=== PATIENT | female | born 1985 | race American Indian/Alaskan Native ===

== ENCOUNTER 2018-11-19 20:18 | Inpatient (IN) | payer MEDICAID ==
[2018-11-19] MEDS ORDERED: NACL 0.9% 1000 ML 1,000 ML IV ONE (20:39)
[2018-11-19 21:05] LABS: Basophils # (Auto) 0.1 K/mm3 (0.0-0.1); Basophils % (Auto) 0.6 % (0.0-1.8); Eosinophils # (Auto) 0.1 K/mm3 (0.0-0.4); Eosinophils % (Auto) 0.8 % (0.0-4.3); Hematocrit 39.6 % (30.3-42.9); Hemoglobin 12.8 gm/dl (10.1-14.3); Lymphocytes # (Auto) 2.2 K/mm3 (1.2-5.4); Lymphocytes % (Auto) 14.2 % (13.4-35.0); Mean Corpuscular HGB Conc 32 % (30-34); Mean Corpuscular Volume 81 fl (79-97); Monocytes # (Auto) 0.6 K/mm3 (0.0-0.8); Monocytes % (Auto) 4.3 % (0.0-7.3); Platelet Count 240 K/mm3 (140-440); Red Blood Count 4.87 M/mm3 (3.65-5.03); Red Cell Distribution Width 14.4 % (13.2-15.2)
[2018-11-19] MEDS ORDERED: VANCOMYCIN/NS 1 GM/250 ML 1 GM/250 ML BAG IV ONE (21:21)
[2018-11-19] MEDS ORDERED: ZOSYN/NS 4.5GM/100ML 4.5 GM/100 ML VIAL IV ONE (21:22)
[2018-11-19] MEDS ORDERED: ZOFRAN IV ONE (21:23)
[2018-11-19] MEDS ORDERED: SUBLIMAZE IV ONE (21:23)
--- NOTE | 2018-11-19 21:26 | Emergency Department Report ---
HPI - General Chief Complaint: Abdominal Pain Time Seen by Provider: 11/19/18 21:07 - HPI HPI: Room 22 The patient is a 33-year-old female presenting with a chief complaint of abdominal erythema. States last night she began having body aches and chills. This morning at approximately 11:00 she states her dog jumped on her and put his pulse on her abdomen. Within the hour the patient began noticing erythema to her abdomen. The patient states erythema has increased dramatically over the last 2 hours. Patient is to subjective fever and nausea but denies vomiting. Patient admits to 3 episodes of diarrhea. The patient states her dog has been vaccinated. Location: Abdomen Duration: [See above] Quality: Pain Severity:03/30 Modifying factors: [see above] Context: [see above] Mode of transportation: [not driving] ED Past Medical Hx - Past Medical History Previous Medical History?: Yes Hx Hypertension: Yes Additional medical history: miscarriage x1 - Surgical History Past Surgical History?: Yes Hx Cholecystectomy: Yes Additional Surgical History: C -Section 2011. Breast Reduction 2008. BTL - Family History Family history: no significant - Social History Smoking Status: Never Smoker Substance Use Type: None (denies illicit drug use) - Medications Home Medications: Home Medications Medication Instructions Recorded Confirmed Last Taken Type Labetalol [Normodyne] 200 mg PO BID 06/29/13 06/29/13 06/28/13 History Sulfamethoxazole/Trimethoprim 1 each PO BID #30 tablet 06/29/13 Unknown Rx [Bactrim DS] oxyCODONE /ACETAMINOPHEN [Percocet 1 tab PO Q6HR PRN #20 tablet 06/29/13 Unknown Rx 5/325 mg] Amoxicillin [Amoxicillin TAB] 875 mg PO BID #14 tablet 10/07/14 Unknown Rx Naproxen [Naprosyn TAB] 500 mg PO BID #20 tablet 10/07/14 Unknown Rx amLODIPine [Norvasc] 5 mg PO DAILY #30 tab 10/07/14 Unknown Rx hydrOXYzine PAMOATE [Vistaril] 50 mg PO Q6HR PRN #30 capsule 07/25/15 Unknown Rx methylPREDNISolone [Medrol Dose 1 pack PO QAM #1 pack 07/25/15 Unknown Rx Pb] ED Review of Systems ROS: Stated complaint: FLU LIKE SX Other details as noted in HPI Constitutional: fever Eyes: denies: eye pain ENT: denies: throat pain Respiratory: no symptoms reported Cardiovascular: denies: chest pain Endocrine: no symptoms reported Gastrointestinal: abdominal pain, nausea. denies: vomiting, diarrhea Genitourinary: denies: dysuria Musculoskeletal: denies: back pain Neurological: headache Physical Exam - Physical Exam Vital Signs: Vital Signs 11/19/18 20:26 Temperature 98.8 F Pulse Rate 106 H Respiratory 18 Rate Blood Pressure 173/117 O2 Sat by Pulse 98 Oximetry Physical Exam: GENERAL: The patient is well-developed well-nourished female lying on stretcher not appearing to be in acute distress. [] HEENT: Normocephalic. Atraumatic. Extraocular motions are intact. Patient has moist mucous membranes. NECK: Supple. Trachea midline CHEST/LUNGS: Clear to auscultation. There is no respiratory distress noted. HEART/CARDIOVASCULAR: Regular. There is no tachycardia. There is no gallop rub or murmur. ABDOMEN: Abdomen is soft, with large region of erythema/cellulitis encompassing the midepigastric region and half of the right upper quadrant and half of the left upper quadrant. Patient has normal bowel sounds. There is no abdominal distention. SKIN: There is a large area of cellulitis encompassing the midepigastric and bilateral upper quadrants of the abdomen. There is no diaphoresis. NEURO: The patient is awake, alert, and oriented. The patient is cooperative. The patient has normal speech MUSCULOSKELETAL: There is no evidence of acute injury. ED Course Vital Signs 11/19/18 20:26 Temperature 98.8 F Pulse Rate 106 H Respiratory 18 Rate Blood Pressure 173/117 O2 Sat by Pulse 98 Oximetry ED Medical Decision Making - Lab Data Result diagrams: 11/19/18 20:52 11/19/18 20:52 Laboratory Tests 11/19/18 11/19/18 11/19/18 20:52 20:52 21:14 WBC 15.2 H RBC 4.87 Hgb 12.8 Hct 39.6 MCV 81 MCH 26 L MCHC 32 RDW 14.4 Plt Count 240 Lymph % (Auto) 14.2 [place] % (Auto) 4.3 Eos % (Auto) 0.8 Baso % (Auto) 0.6 Lymph # 2.2 [place] # 0.6 Eos # 0.1 Baso # 0.1 Seg Neutrophils % 80.1 H Seg Neutrophils # 12.2 H Sodium 140 Potassium 3.0 L Chloride 96.5 L Carbon Dioxide 31 H Anion Gap 16 BUN 13 Creatinine 1.0 Estimated GFR > 60 BUN/Creatinine Ratio 13 Glucose 95 Calcium 8.8 Total Bilirubin 0.20 AST 14 ALT 14 Alkaline Phosphatase 80 Total Protein 6.9 Albumin 4.0 Albumin/Globulin Ratio 1.4 Urine Color Yellow Urine Turbidity Clear Urine pH 5.0 Ur Specific [place] 1.012 Urine Protein <15 mg/dl Urine Glucose (UA) Neg Urine Ketones Neg Urine Blood Lg Urine Nitrite Neg Urine Bilirubin Neg Urine Urobilinogen < 2.0 Ur Leukocyte Esterase Sm Urine WBC (Auto) 12.0 H Urine RBC (Auto) 2.0 U Epithel Cells (Auto) 3.0 Urine Bacteria (Auto) 1+ Urine HCG, Qual 11/19/18 21:14 WBC RBC Hgb Hct MCV MCH MCHC RDW Plt Count Lymph % (Auto) [place] % (Auto) Eos % (Auto) Baso % (Auto) Lymph # [place] # Eos # Baso # Seg Neutrophils % Seg Neutrophils # Sodium Potassium Chloride Carbon Dioxide Anion Gap BUN Creatinine Estimated GFR BUN/Creatinine Ratio Glucose Calcium Total Bilirubin AST ALT Alkaline Phosphatase Total Protein Albumin Albumin/Globulin Ratio Urine Color Urine Turbidity Urine pH Ur Specific [place] Urine Protein Urine Glucose (UA) Urine Ketones Urine Blood Urine Nitrite Urine Bilirubin Urine Urobilinogen Ur Leukocyte Esterase Urine WBC (Auto) Urine RBC (Auto) U Epithel Cells (Auto) Urine Bacteria (Auto) Urine HCG, Qual Negative - Differential Diagnosis cellulitis Critical care attestation.: If time is entered above; I have spent that time in minutes in the direct care of this critically ill patient, excluding procedure time. ED Disposition Clinical Impression: Abdominal wall cellulitis, Hypokalemia, Leukocytosis Disposition: OP ADMIT IP TO THIS HOSP Is pt being admited?: Yes Does the pt Need Aspirin: Yes Condition: Fair Instructions: Abdominal Pain (ED) Time of Disposition: 22:07 (hospitalist paged (Dr. Maren Perez))
[2018-11-19 21:45] LABS: Bacteria,Urine 1+ /HPF (Negative); Bilirubin,Urine NEG (Negative); Blood,Urine LG (Negative); Color,Urine Yellow (Yellow); Protein,Urine <15 mg/dL mg/dL (Negative); Urobilinogen,Urine < 2.0 mg/dL (<2.0)
[2018-11-19 21:53] LABS: Alanine Aminotransferase 14 units/L (7-56); BUN/Creatinine Ratio 13; Blood Urea Nitrogen 13 mg/dL (7-17); Calcium 8.8 mg/dL (8.4-10.2); Hemolysis Index 5
[2018-11-19 21:59] LABS: HCG Qualitative,Urine Negative (Negative)
[2018-11-19] MEDS ORDERED: K-DUR PO ONE (22:07)
[2018-11-19] MEDS ORDERED: VANCOMYCIN 2,000 MG in NACL 0.9% 500 ML 500 ML IV ONE (22:35)
[2018-11-19] MEDS ORDERED: TYLENOL PO PRN (23:29)
[2018-11-19] MEDS ORDERED: ZOFRAN IV PRN (23:29)
[2018-11-19] MEDS ORDERED: SODIUM CHLORIDE FLUSH SYRINGE 10 ML IV PRN (23:29)
--- NOTE | 2018-11-19 23:32 | History and Physical Report ---
History of Present Illness Date of examination: 11/19/18 History of present illness: 32-year-old woman with a history of hypertension, obesity class emergency room with complaints of abdominal redness that started today. She states that her dog jumped on her abdomen, later on she noticed the redness, small scratch on h er abdomen. Also complaining of chills Review of systems Constitutional: no weight loss, fever Ears, eyes, nose, mouth and throat: no nasal congestion, no nasal discharge, no sinus pressure, no vision change, no red eye. Neck: No neck pain or rigidity. Cardiovascular: no palpitations, chest pain Respiratory: no cough, shortness of breath Gastrointestinal: no hematochezia, abdominal pain Genitourinary : no frequency , no hematuria Musculoskeletal: no joint swelling or muscle ache Integumentary: no rash, no pruritis Neurological: no parathesias, no focal weakness Endocrine: no cold or heat intolerance, no polyuria or polydipsia Hematologic/Lymphatic: no easy bruising, no easy bleeding, no gland swelling Allergic/Immunologic: no urticaria, no angioedema. PAST MEDICAL HISTORY: Hypertension, obesity PAST SURGICAL HISTORY: Breast reduction, tubal ligation, cholecystectomy, C- section SOCIAL HISTORY: Denies alcohol, drugs, tobacco FAMILY HISTORY: Hypertension Medications and Allergies Allergies Allergy/AdvReac Type Severity Reaction Status Date / Time meperidine HCl [From Demerol] Allergy Hives Verified 06/29/13 10:07 Home Medications Medication Instructions Recorded Confirmed Last Taken Type Labetalol [Normodyne] 200 mg PO BID 06/29/13 06/29/13 06/28/13 History Sulfamethoxazole/Trimethoprim 1 each PO BID #30 tablet 06/29/13 Unknown Rx [Bactrim DS] oxyCODONE /ACETAMINOPHEN [Percocet 1 tab PO Q6HR PRN #20 tablet 06/29/13 Unknown Rx 5/325 mg] Amoxicillin [Amoxicillin TAB] 875 mg PO BID #14 tablet 10/07/14 Unknown Rx Naproxen [Naprosyn TAB] 500 mg PO BID #20 tablet 10/07/14 Unknown Rx amLODIPine [Norvasc] 5 mg PO DAILY #30 tab 10/07/14 Unknown Rx hydrOXYzine PAMOATE [Vistaril] 50 mg PO Q6HR PRN #30 capsule 07/25/15 Unknown Rx methylPREDNISolone [Medrol Dose 1 pack PO QAM #1 pack 07/25/15 Unknown Rx Pb] Active Meds: Active Medications Acetaminophen (Tylenol) 650 mg PO Q4H PRN PRN Reason: Pain MILD(1-3)/Fever >100.5/LINDA Enoxaparin Sodium (Lovenox) 30 mg SUB-Q QDAY BOYD Sodium Chloride (Nacl 0.9% 1000 Ml) 1,000 mls @ 250 mls/hr IV ONCE ONE Stop: 11/20/18 00:38 Last Admin: 11/19/18 21:44 Dose: 250 mls/hr Documented by: Vancomycin HCl 2,000 mg/ (Sodium Chloride) 540 mls @ 250 mls/hr IV ONCE ONE Stop: 11/20/18 00:44 Last Admin: 11/19/18 23:00 Dose: 250 mls/hr Documented by: Ondansetron HCl (Zofran) 4 mg IV Q8H PRN PRN Reason: Nausea And Vomiting Oxycodone/Acetaminophen (Percocet 5/325) 1 tab PO Q6H PRN PRN Reason: Pain, Moderate (4-6) Sodium Chloride (Sodium Chloride Flush Syringe 10 Ml) 10 ml IV BID BOYD Sodium Chloride (Sodium Chloride Flush Syringe 10 Ml) 10 ml IV PRN PRN PRN Reason: LINE FLUSH Exam - Physical Exam Narrative exam: General Apperance: The patient lying in bed, breathing comfortable HEENT: Normocephalic, atraumatic. Pupils equally round and reactive to light, EOMI, no sclericterus or JVD or thyromegaly or nodule. , no carotid bruit, mucous membranes moist, no exudate or erythema Heart: S1-S2, regular is rhythm Lungs: Clear to auscultation bilaterally, breathing comfortable Abdomen: Marked erythema across the abdominal wall, tender to touch, Positive bowel sounds, soft, nontender, nondistended, no organomegaly Extremities: No edema cyanosis clubbing Skin: no rash, nodule, warm and dry Neuro: cranial nerves 2-12 intact, speech is fluent, motor/sensory intact - Constitutional Vitals: Temp Pulse Resp BP Pulse Ox 98.8 F 97 H 16 177/97 97 11/19/18 20:26 11/19/18 21:26 11/19/18 21:26 11/19/18 21:26 11/19/18 21:26 Results - Labs CBC & Chem 7: 11/19/18 20:52 11/19/18 20:52 Labs: Abnormal lab results 11/19/18 11/19/18 11/19/18 Range/Units 20:52 20:52 21:14 WBC 15.2 H (4.5-11.0) K/mm3 MCH 26 L (28-32) pg Seg Neutrophils % 80.1 H (40.0-70.0) % Seg Neutrophils # 12.2 H (1.8-7.7) K/mm3 Potassium 3.0 L (3.6-5.0) mmol/L Chloride 96.5 L (98-107) mmol/L Carbon Dioxide 31 H (22-30) mmol/L Urine WBC (Auto) 12.0 H (0.0-6.0) /HPF Assessment and Plan Assessment Abdominal wall cellulitis Hypertension uncontrolled Obesity Plan Start vancomycin, follow cultures, check lactic acid Start IV hydralazine as needed for blood pressure control Start Percocet, DVT prophylaxis IV hydralazine as needed for blood pressure control Continue outpatient medications
[2018-11-19] MEDS ORDERED: APRESOLINE IV PRN (23:40)
[2018-11-20] MEDS ORDERED: BENADRYL ONE (01:28)
[2018-11-20] MEDS: BENADRYL IV PRN ×3 (01:33→22:06)
[2018-11-20] MEDS: PERCOCET 5/325 PO PRN ×3 (02:54→22:06)
[2018-11-20] MEDS ORDERED: VANCOMYCIN 1,500 MG in NACL 0.9% 500 ML 500 ML IV SCH ×2 (06:00→18:00)
[2018-11-20 06:16] LABS: Basophils % (Auto) 0.2 % (0.0-1.8); Eosinophils # (Auto) 0.1 K/mm3 (0.0-0.4); Eosinophils % (Auto) 1.1 % (0.0-4.3); Hematocrit 37.7 % (30.3-42.9); Hemoglobin 12.3 gm/dl (10.1-14.3); Lymphocytes # (Auto) 1.6 K/mm3 (1.2-5.4); Lymphocytes % (Auto) 14.1 % (13.4-35.0); Mean Corpuscular HGB Conc 33 % (30-34); Mean Corpuscular Volume 81 fl (79-97); Monocytes # (Auto) 0.5 K/mm3 (0.0-0.8); Monocytes % (Auto) 4.9 % (0.0-7.3); Platelet Count 206 K/mm3 (140-440); Red Blood Count 4.69 M/mm3 (3.65-5.03); Red Cell Distribution Width 14.3 % (13.2-15.2)
[2018-11-20 06:41] LABS: BUN/Creatinine Ratio 12; Blood Urea Nitrogen 11 mg/dL (7-17); Calcium 8.2 mg/dL (8.4-10.2); Hemolysis Index 17
--- NOTE | 2018-11-20 10:52 | Consultation ---
History of Present Illness - Reason for Consult Consult date: 11/20/18 Abdominal wall cellulitis Requesting physician: JUSTIN BARAHONA - History of Present Illness This patient is a 33 year old female with a past medical history of hypertension and morbid obesity, that presents in the ED on 11/19/18 with complaints of abdominal redness that started today. She stated that her dog jumped on her abdomen and she noticed a small scratch and redness on her abdomen. Upon further evaluation, she was complaining of chills.and 3 episodes of diarrhea. On admission WBC 15.2,Creatinine 0.9, Lactic acid 1.0, AST 14, ALT 14. Temperature 98.8, now, 100.0, HR 106, BP 173/117, U/A showed Mild Pyuria, Blood cultures were drawn and are pending. Patient states that she has a terrier at home. The dog jumped up on her and scratched her abdomen, a couple of hours later she felt a burning sensation and noticed swelling in the abdominal region. She denies alcohol, tobacco or substance abuse. Review of Systems: General: + fevers, no chills no rigors HEENT: no new visual disturbance Respiratory: No cough, sputum, hemoptysis or shortness of breath Cardiovascular: No chest pain, syncope Gastrointestinal: No nausea, vomiting. diarrhea or constipation Genitourinary: No dysuria or hematuria Musculoskeletal: No new or worsening neck pain or back pain Neurologic: No headaches, seizures Hematologic: No easy bruising or bleeding Endocrine: No night sweats. acute weight loss Skin: Abdomen +erythema and warmth, no drainage Psychiatric: stable mood; no excessive anxiety, sadness or moodiness Medications and Allergies Allergies Allergy/AdvReac Type Severity Reaction Status Date / Time meperidine HCl [From Demerol] Allergy Hives Verified 06/29/13 10:07 Home Medications Medication Instructions Recorded Confirmed Last Taken Type Labetalol [Normodyne] 200 mg PO BID 06/29/13 11/20/18 06/28/13 History amLODIPine [Norvasc] 5 mg PO DAILY #30 tab 10/07/14 11/20/18 Unknown Rx Active Meds: Active Medications Acetaminophen (Tylenol) 650 mg PO Q4H PRN PRN Reason: Pain MILD(1-3)/Fever >100.5/LINDA Amlodipine Besylate (Norvasc) 5 mg PO DAILY BOYD Diphenhydramine HCl (Benadryl) 25 mg IV Q6H PRN PRN Reason: Agitation Last Admin: 11/20/18 06:54 Dose: 25 mg Documented by: Enoxaparin Sodium (Lovenox) 40 mg SUB-Q QDAY BOYD Hydralazine HCl (Apresoline) 5 mg IV Q6H PRN PRN Reason: Hypertension Vancomycin HCl 1,500 mg/ (Sodium Chloride) 530 mls @ 333.333 mls/hr IV Q12H BOYD Labetalol HCl (Normodyne) 200 mg PO BID BOYD Ondansetron HCl (Zofran) 4 mg IV Q8H PRN PRN Reason: Nausea And Vomiting Oxycodone/Acetaminophen (Percocet 5/325) 1 tab PO Q6H PRN PRN Reason: Pain, Moderate (4-6) Last Admin: 11/20/18 02:54 Dose: 1 tab Documented by: Sodium Chloride (Sodium Chloride Flush Syringe 10 Ml) 10 ml IV BID BOYD Sodium Chloride (Sodium Chloride Flush Syringe 10 Ml) 10 ml IV PRN PRN PRN Reason: LINE FLUSH Physical Examination - Physical Exam Narrative exam: Constitutional: Alert, cooperative. mild distress observed, Morbidly obese Head, Ears, Nose: Normocephalic, atraumatic. External ears, nose normal Eyes: Conjunctivae/corneas clear. No icterus. No ptosis. Neck: Supple, no meningeal signs Oral: dentition good, no thrush Cardiovascular: S1, S2 normal. Respiratory: Good air entry, clear to auscultation bilaterally GI: Soft, non-tender; bowel sounds normal. No peritoneal signs Musculoskeletal: No pedal edema, no cyanosis. Skin: abdominal + erythema , + warmth, no drainage, Right underarm healed abscess Hem/Lymphatic: No palpable cervical or supraclavicular nodes. No lymphangitis Psych: Mood ok. Affect normal Neurological: Awake, alert, oriented. - Constitutional Vitals: Vital Signs Temp Pulse Resp BP Pulse Ox 100.0 F H 93 H 20 150/68 93 11/20/18 04:55 11/20/18 04:55 11/20/18 04:55 11/20/18 04:55 11/20/18 04:55 Temperature -Last 24 Hours Temperature 100.0 F Temperature 99.1 F Temperature 98.8 F Results - Labs CBC & Chem 7: 11/20/18 05:05 11/20/18 05:05 Labs: Abnormal lab results 11/19/18 11/19/18 11/19/18 Range/Units 20:52 20:52 21:14 WBC 15.2 H (4.5-11.0) K/mm3 MCH 26 L (28-32) pg Seg Neutrophils % 80.1 H (40.0-70.0) % Seg Neutrophils # 12.2 H (1.8-7.7) K/mm3 Potassium 3.0 L (3.6-5.0) mmol/L Chloride 96.5 L (98-107) mmol/L Carbon Dioxide 31 H (22-30) mmol/L Calcium (8.4-10.2) mg/dL Urine WBC (Auto) 12.0 H (0.0-6.0) /HPF 11/20/18 11/20/18 Range/Units 05:05 05:05 WBC (4.5-11.0) K/mm3 MCH 26 L (28-32) pg Seg Neutrophils % 79.7 H (40.0-70.0) % Seg Neutrophils # 8.8 H (1.8-7.7) K/mm3 Potassium 3.1 L (3.6-5.0) mmol/L Chloride (98-107) mmol/L Carbon Dioxide (22-30) mmol/L Calcium 8.2 L (8.4-10.2) mg/dL Urine WBC (Auto) (0.0-6.0) /HPF Assessment and Plan Cultures: 11/19/2018 Blood: in progress A/P: 33 -year-old female with a history of hypertension and morbid obesity, now admitted with: 1. SIRS vs Sepsis on admission: evidenced by leukocytosis and tachycardia. Now Fevers. Etiology most likely abdominal wall cellulitis. Blood cultures drawn and are pending, U/A shows mild pyuria. Currently being treated with Vancomycin. 2. Abdominal Wall Cellulitis: on exam abdomen +erythema, +warmth, no drainage. 3. Morbid Obesity: Discussion about low fat diet and incorporating an exercise regimen 4. Urinary Tract Infection: U/A consistent with mild UTI. 5. Vancomycin Allergy? - reported facial rash with warmth and redness. vancomycin discontinued. Started Cefazolin and Clindamycin. Plan -f/u blood cultures -order urine culture -order CRP -Start Cefazolin 1gm, IV q 8h and Clindamycin 600mg, IV Q 8h [facility] M: [phone] O:[phone]
[2018-11-20] MEDS: LOVENOX SUB-Q SCH (11:18)
[2018-11-20] MEDS: NORVASC PO SCH (11:19)
[2018-11-20] MEDS: NORMODYNE PO SCH ×2 (11:19→22:18)
[2018-11-20] MEDS: SODIUM CHLORIDE FLUSH SYRINGE 10 ML IV SCH ×2 (11:21→22:19)
[2018-11-20] MEDS ORDERED: VANCOMYCIN/NS 1 GM/250 ML 1 GM/250 ML BAG IV SCH (11:30)
[2018-11-20] MEDS: ANCEF/NS 1 GM/50 ML 1 GM/50 ML BAG IV SCH ×2 (14:31→22:19)
--- NOTE | 2018-11-20 14:41 | Progress Note ---
Assessment and Plan Assessment and plan: Sepsis secondary to cellulitis of the abdominal wall - Patient had leukocytosis and tachycardia at presentation - Patient was started with vancomycin but patient started to have itching all over her body and discontinued - ID was consulted and currently on cefazolin and clindamycin. Morbid obesity - Counseled about weight loss Hypertension - Continue medications DVT prophylaxis - On Lovenox Disposition; per clinical course. History Interval history: Patient was seen and evaluated this morning, patient admitted for subjective fever. Hospitalist Physical - Physical exam Narrative exam: Not in cardiopulmonary distress. The patient is morbidly obese. Vital signs as documented. Head exam is unremarkable. No scleral icterus . Neck is without jugular venous distension, thyromegaly, or carotid bruits. Lungs are clear to auscultation. Cardiac exam reveals regular rate and Rhythm. Abdominal exam reveals normal bowel sounds. Erythematous lesion on the abdomen. Extremities are nonedematous. DOUPER: Alert and oriented 3. - Constitutional Vitals: Temp Pulse Resp BP Pulse Ox 99.1 F 95 H 20 136/84 95 11/20/18 11:17 11/20/18 11:19 11/20/18 11:17 11/20/18 11:19 11/20/18 11:17 Results - Labs CBC & Chem 7: 11/20/18 05:05 11/20/18 05:05 Labs: Laboratory Last Values WBC 11.0 K/mm3 (4.5-11.0) 11/20/18 05:05 RBC 4.69 M/mm3 (3.65-5.03) 11/20/18 05:05 Hgb 12.3 gm/dl (10.1-14.3) 11/20/18 05:05 Hct 37.7 % (30.3-42.9) 11/20/18 05:05 MCV 81 fl (79-97) 11/20/18 05:05 MCH 26 pg (28-32) L 11/20/18 05:05 MCHC 33 % (30-34) 11/20/18 05:05 RDW 14.3 % (13.2-15.2) 11/20/18 05:05 Plt Count 206 K/mm3 (140-440) 11/20/18 05:05 Lymph % (Auto) 14.1 % (13.4-35.0) 11/20/18 05:05 [place] % (Auto) 4.9 % (0.0-7.3) 11/20/18 05:05 Eos % (Auto) 1.1 % (0.0-4.3) 11/20/18 05:05 Baso % (Auto) 0.2 % (0.0-1.8) 11/20/18 05:05 Lymph # 1.6 K/mm3 (1.2-5.4) 11/20/18 05:05 [place] # 0.5 K/mm3 (0.0-0.8) 11/20/18 05:05 Eos # 0.1 K/mm3 (0.0-0.4) 11/20/18 05:05 Baso # 0.0 K/mm3 (0.0-0.1) 11/20/18 05:05 Seg Neutrophils % 79.7 % (40.0-70.0) H 11/20/18 05:05 Seg Neutrophils # 8.8 K/mm3 (1.8-7.7) H 11/20/18 05:05 Sodium 142 mmol/L (137-145) 11/20/18 05:05 Potassium 3.1 mmol/L (3.6-5.0) L 11/20/18 05:05 Chloride 103.5 mmol/L (98-107) 11/20/18 05:05 Carbon Dioxide 27 mmol/L (22-30) 11/20/18 05:05 Anion Gap 15 mmol/L 11/20/18 05:05 BUN 11 mg/dL (7-17) 11/20/18 05:05 Creatinine 0.9 mg/dL (0.7-1.2) 11/20/18 05:05 Estimated GFR > 60 ml/min 11/20/18 05:05 BUN/Creatinine Ratio 12 % 11/20/18 05:05 Glucose 96 mg/dL (65-100) 11/20/18 05:05 Lactic Acid 1.00 mmol/L (0.7-2.0) 11/19/18 23:54 Calcium 8.2 mg/dL (8.4-10.2) L 11/20/18 05:05 Total Bilirubin 0.20 mg/dL (0.1-1.2) 11/19/18 20:52 AST 14 units/L (5-40) 11/19/18 20:52 ALT 14 units/L (7-56) 11/19/18 20:52 Alkaline Phosphatase 80 units/L (35-129) 11/19/18 20:52 Total Protein 6.9 g/dL (6.3-8.2) 11/19/18 20:52 Albumin 4.0 g/dL (3.9-5) 11/19/18 20:52 Albumin/Globulin Ratio 1.4 % 11/19/18 20:52 Urine Color Yellow (Yellow) 11/19/18 21:14 Urine Turbidity Clear (Clear) 11/19/18 21:14 Urine pH 5.0 (5.0-7.0) 11/19/18 21:14 Ur Specific [place] 1.012 (1.003-1.030) 11/19/18 21:14 Urine Protein <15 mg/dl mg/dL (Negative) 11/19/18 21:14 Urine Glucose (UA) Neg mg/dL (Negative) 11/19/18 21:14 Urine Ketones Neg mg/dL (Negative) 11/19/18 21:14 Urine Blood Lg (Negative) 11/19/18 21:14 Urine Nitrite Neg (Negative) 11/19/18 21:14 Urine Bilirubin Neg (Negative) 11/19/18 21:14 Urine Urobilinogen < 2.0 mg/dL (<2.0) 11/19/18 21:14 Ur Leukocyte Esterase Sm (Negative) 11/19/18 21:14 Urine WBC (Auto) 12.0 /HPF (0.0-6.0) H 11/19/18 21:14 Urine RBC (Auto) 2.0 /HPF (0.0-6.0) 11/19/18 21:14 U Epithel Cells (Auto) 3.0 /HPF (0-13.0) 11/19/18 21:14 Urine Bacteria (Auto) 1+ /HPF (Negative) 11/19/18 21:14 Urine HCG, Qual Negative (Negative) 11/19/18 21:14
[2018-11-20] MEDS: CLEOCIN 600 MG/50 mL 600 MG/50 ML BAG IV SCH ×2 (16:59→21:58)
[2018-11-21] MEDS ORDERED: ZYVOX PO SCH (04:00)
[2018-11-21] MEDS: NORMODYNE PO SCH ×2 (04:00→09:46)
[2018-11-21 04:59] LABS: Basophils % (Auto) 0.2 % (0.0-1.8); Eosinophils # (Auto) 0.6 K/mm3 (0.0-0.4); Eosinophils % (Auto) 4.8 % (0.0-4.3); Hematocrit 35.2 % (30.3-42.9); Hemoglobin 11.6 gm/dl (10.1-14.3); Lymphocytes # (Auto) 2.8 K/mm3 (1.2-5.4); Lymphocytes % (Auto) 23.7 % (13.4-35.0); Mean Corpuscular HGB Conc 33 % (30-34); Mean Corpuscular Volume 80 fl (79-97); Monocytes # (Auto) 0.8 K/mm3 (0.0-0.8); Monocytes % (Auto) 6.7 % (0.0-7.3); Platelet Count 198 K/mm3 (140-440); Red Blood Count 4.39 M/mm3 (3.65-5.03); Red Cell Distribution Width 14.5 % (13.2-15.2)
[2018-11-21 05:15] LABS: BUN/Creatinine Ratio 14; Blood Urea Nitrogen 11 mg/dL (7-17); Calcium 7.8 mg/dL (8.4-10.2); Hemolysis Index 12
[2018-11-21] MEDS ORDERED: UNASYN/NS 3 GM/100 ML 3 GM/100 ML BAG IV SCH (06:00)
--- NOTE | 2018-11-21 08:16 | Progress Note ---
Assessment and Plan Cultures: 11/19/2018 Blood: in progress A/P: 33 -year-old female with a history of hypertension and morbid obesity, now admitted with: 1. SIRS vs Sepsis on admission: evidenced by leukocytosis and tachycardia. Now Fevers. Etiology most likely abdominal wall cellulitis. Blood cultures drawn and are pending, U/A shows mild pyuria. 2. Abdominal Wall Cellulitis: on exam abdomen +erythema, +warmth, no drainage. Will start Augmentin IV to cover dog's mike and Zyvox PO for MRSA. -CRP 12.1 3. Morbid Obesity: Discussion about low fat diet and incorporating an exercise regimen 4. Urinary Tract Infection: U/A consistent with mild UTI. 5. Vancomycin Allergy? - reported facial rash with warmth and redness. vancomycin discontinued. Started Cefazolin and Clindamycin. Plan -f/u blood cultures -f/u urine culture -discontinue cefazolin and clindamycin -Start Augmentin 3g, IV every 6h and Zyvox 600 mg, PO every 12 h -can be discharged on Augmentin 875mg, PO BID and Doxycycline 100mg, PO BID for total 7 days ending 11/26/18 Dr. Mendoza will be rounding in the hospital this weekend, . please call for questions. [facility] M: [phone] O:[phone] Subjective Date of service: 11/21/18 Interval history: Patient seen and examined. Denied fever, rashes or SOB. Stated that she was feeling better today, however experiencing increased itching to her abdominal area. Nurse notes, lab and reports reviewed, discussed with patient, questions answered. Objective - Exam Narrative Exam: Constitutional: Alert, cooperative, no acute distress. Morbidly obese Head, Ears, Nose: Normocephalic, atraumatic. External ears, nose normal Eyes: Conjunctivae/corneas clear. No icterus. No ptosis. Neck: Supple, no meningeal signs Oral: dentition good, no thrush Cardiovascular: S1, S2 normal. Respiratory: Good air entry, clear to auscultation bilaterally GI: Soft, non-tender; bowel sounds normal. No peritoneal signs Musculoskeletal: No pedal edema, no cyanosis. Skin: abdominal + erythema ,+pruritus , Right underarm healed abscess Hem/Lymphatic: No palpable cervical or supraclavicular nodes. No lymphangitis Psych: Mood ok. Affect normal Neurological: Awake, alert, oriented. - Constitutional Vitals: Vital Signs Temp Pulse Resp BP Pulse Ox 98.0 F 88 20 126/77 99 11/21/18 05:18 11/21/18 04:00 11/21/18 05:18 11/21/18 05:18 11/20/18 17:55 Temperature -Last 24 Hours Temperature 98.0 F Temperature 98.4 F Temperature 99.2 F Temperature 99.1 F - Labs CBC & Chem 7: 11/21/18 03:58 11/21/18 03:58 Labs: Abnormal lab results 11/20/18 11/21/18 11/21/18 Range/Units 17:33 03:58 03:58 WBC 12.0 H (4.5-11.0) K/mm3 MCH 26 L (28-32) pg Eos % (Auto) 4.8 H (0.0-4.3) % Eos # 0.6 H (0.0-0.4) K/mm3 Potassium 3.1 L (3.6-5.0) mmol/L Glucose 106 H (65-100) mg/dL Calcium 7.8 L (8.4-10.2) mg/dL C-Reactive Protein 12.10 H (0.00-1.30) mg/dL
[2018-11-21] MEDS: NORVASC PO SCH (09:46)
[2018-11-21] MEDS: LOVENOX SUB-Q SCH (09:47)
[2018-11-21] MEDS: SODIUM CHLORIDE FLUSH SYRINGE 10 ML IV SCH (09:48)
[2018-11-21] MEDS ORDERED: K-DUR PO ONE (10:00)
--- NOTE | 2018-11-21 11:58 | Discharge Summary ---
Providers - Providers Date of Admission: 11/19/18 23:30 Attending physician: JUSTIN BARAHONA MD 11/20/18 07:31 Consult to Physician [CONS] Routine Comment: vancomycin d/danika due to itching Consulting Provider: IBETH BROWN Physician Instructions: Reason For Exam: abdominal wall cellulitis Primary care physician: VIKTORIYA WELCH Hospitalization Reason for admission: abdominal no cellulitis, morbid obesity, hypertension Condition: Stable Hospital course: 32-year-old woman with a history of hypertension, obesity class emergency room with complaints of abdominal redness that started on the day of admission. She stated that her dog jumped on her abdomen, later on she noticed the redness, small scratch on her abdomen. Also complaining of chills. Patient was admitted to the medical floor for the management of abdominal was sepsis 2/2 cellulitis. patient was started with IV vancomycin and zosyn but the patient developed severe itching due to vancomycin and d/danika. ID consulted and started with cefazolin and clindamycin and discharged with Augmentin and doxycycline. ID gave the script. Cellulitis was getting better. Patient's questions and concerns were addressed at the bedside. Disposition: [id number] TO HOME OR SELFCARE Time spent for discharge: 32 minutes - Discharge Diagnoses (1) Abdominal wall cellulitis Status: Acute (2) Hypokalemia Status: Acute (3) Leukocytosis Status: Acute Core Measure Documentation - Palliative Care Palliative Care/ Comfort Measures: Not Applicable - Core Measures Any of the following diagnoses?: none Exam - Physical Exam Narrative exam: Not in cardiopulmonary distress. The patient is morbidly obese. Vital signs as documented. Head exam is unremarkable. No scleral icterus . Neck is without jugular venous distension, thyromegaly, or carotid bruits. Lungs are clear to auscultation. Cardiac exam reveals regular rate and Rhythm. Abdominal exam reveals normal bowel sounds. Erythematous lesion on the abdomen. Extremities are nonedematous. BUSINESS BANKING MANAGER: Alert and oriented 3. - Constitutional Vitals: Temp Pulse Resp BP Pulse Ox 98.0 F 84 20 126/77 99 11/21/18 05:18 11/21/18 09:46 11/21/18 05:18 11/21/18 09:46 11/20/18 17:55 Plan Activity: no restrictions Weight Bearing Status: Full Weight Bearing Diet: low fat, low salt Follow up with: VIKTORIYA WELCH MD [Primary Care Provider] - 7 Days Prescriptions: Amoxicillin/K Clav Tab [Augmentin 875 mg] 1 tab PO Q12HR 6 Days #12 tab Doxycycline [Vibramycin CAP] 100 mg PO Q12HR 6 Days #12 capsule
[2018-11-23 11:25] VITALS: BP 128/70
== END 2018-11-21 15:17 | disposition home or self-care (01) | DRG 872 ==
LOC: ED 20:18 → 3A 23:30
PROVIDERS: ADMIT Internal Medicine; ATTEND Internal Medicine
DX: A41.9 Sepsis, unspecified organism (principal); E87.6 Hypokalemia; L03.311 Cellulitis of abdominal wall; E66.01 Morbid (severe) obesity due to excess calories; N39.0 Urinary tract infection, site not specified; I10 Essential (primary) hypertension; Z68.43 Body mass index [BMI] 50.0-59.9, adult; Z88.1 Allergy status to other antibiotic agents; Z71.3 Dietary counseling and surveillance; Z22.322 Carrier or suspected carrier of Methicillin resistant Staphylococcus aureus; Z79.899 Other long term (current) drug therapy; Z90.49 Acquired absence of other specified parts of digestive tract; Z98.51 Tubal ligation status; Z82.49 Family history of ischemic heart disease and other diseases of the circulatory system
CPT/HCPCS: 36415; 80048; 80053; 81001; 81025; 82140; 85025; 86140; 87040; 87086; 96365; 96375; G0378; J0295; J0690; J1200; J1650; J2405; J2543; J3010; J3370; J7030; J7040

== ENCOUNTER 2019-03-28 11:40 | Emergency (ER) | payer MEDICAID ==
--- NOTE | 2019-03-28 12:03 | Emergency Department Report ---
Blank Doc - Documentation Documentation: 33 y o female presents to Ed cc of left sided flank/adb and back pain with dysu jesse x 1 week PMH: HTN on meds LMP: 03/03/19 UA/UPT ACC eval
[2019-03-28 12:29] LABS: Bacteria,Urine 1+ /HPF (Negative); Bilirubin,Urine NEG (Negative); Blood,Urine NEG (Negative); Color,Urine Yellow (Yellow); Mucus,Urine FEW /HPF; Urobilinogen,Urine < 2.0 mg/dL (<2.0)
[2019-03-28 12:30] LABS: HCG Qualitative,Urine Negative (Negative)
[2019-03-28] MEDS ORDERED: TORADOL IV ONE (12:55)
[2019-03-28] MEDS ORDERED: ZOFRAN IV ONE (12:55)
--- NOTE | 2019-03-28 12:56 | Emergency Department Report ---
ED Abdominal Pain HPI - General Chief Complaint: Abdominal Pain Stated Complaint: L SIDE PAIN/PELVIC/STOMACH/BACK PAIN Time Seen by Provider: 03/28/19 11:59 Source: patient Mode of arrival: Ambulatory Limitations: No Limitations - History of Present Illness Initial Comments: This is a 33 year-old female who presents to the emergency room with left lower quadrant pain radiating to left flank for 7 days. Past medical history of hypertension, irritable bowel syndrome, and pancreatitis. Patient reports pain feel like contractions chart and intermittent. She also reports dizziness and urinary frequency. She denies dysuria, vaginal discharge, palpitations, or chest pain. MD Complaint: abdominal pain Onset/Timin -: week(s) Location: LLQ Radiation: L flank Migration to: no migration Severity: mild Severity scale (0 -10): 3 Quality: sharp Consistency: intermittent Improves With: nothing Worsens With: eating Associated Symptoms: nausea. denies: vomiting, diarrhea, fever, chills, constipation, dysuria, hematemesis, hematochezia, melena, hematuria, anorexia, syncope - Related Data LMP Date: 03/03/19 Home Medications Medication Instructions Recorded Confirmed Last Taken Labetalol [Normodyne] 200 mg PO BID 06/29/13 11/20/18 06/28/13 Previous Rx's Medication Instructions Recorded Last Taken Type amLODIPine [Norvasc] 5 mg PO DAILY #30 tab 10/07/14 Unknown Rx Amoxicillin/K Clav Tab [Augmentin 1 tab PO Q12HR 6 Days #12 tab 11/21/18 Unknown Rx 875 mg] DOXYCYCLINE Hyclate [Vibramycin 100 mg PO Q12HR 6 Days #12 capsule 11/21/18 Unknown Rx CAP] Ciprofloxacin HCl [Ciprofloxacin 500 mg PO Q12HR 10 Days #20 tab 03/28/19 Unknown Rx TAB] Promethazine [Phenergan] 25 mg PO Q8HR PRN #20 tab 03/28/19 Unknown Rx Allergies Allergy/AdvReac Type Severity Reaction Status Date / Time meperidine HCl [From Demerol] Allergy Hives Verified 06/29/13 10:07 ED Review of Systems ROS: Stated complaint: L SIDE PAIN/PELVIC/STOMACH/BACK PAIN Other details as noted in HPI Constitutional: denies: chills, fever Respiratory: denies: cough, shortness of breath, wheezing Cardiovascular: denies: chest pain, palpitations Gastrointestinal: abdominal pain, nausea. denies: vomiting, diarrhea Musculoskeletal: back pain (left flank). denies: joint swelling, arthralgia Skin: denies: rash, lesions Neurological: denies: headache, weakness, paresthesias Psychiatric: denies: anxiety, depression ED Past Medical Hx - Past Medical History Previous Medical History?: Yes Hx Hypertension: Yes Hx Heart Attack/AMI: No Hx Congestive Heart Failure: No Hx Diabetes: No Hx Deep Vein Thrombosis: No Hx Renal Disease: No Hx Sickle Cell Disease: No Hx Kidney Stones: No Hx Asthma: No Hx COPD: No Hx Tuberculosis: No Hx HIV: No Additional medical history: miscarriage x1. IBS. Pancreatitis. - Surgical History Past Surgical History?: Yes Hx Coronary Stent: No Hx Pacemaker: No Hx Internal Defibrillator: No Hx Cholecystectomy: Yes Hx Breast Surgery: Yes (BREAST REDUCTION.) Additional Surgical History: C -Section 2011. Breast Reduction 2008. BTL - Social History Smoking Status: Never Smoker Substance Use Type: Alcohol, Prescribed - Medications Home Medications: Home Medications Medication Instructions Recorded Confirmed Last Taken Type Labetalol [Normodyne] 200 mg PO BID 06/29/13 11/20/18 06/28/13 History amLODIPine [Norvasc] 5 mg PO DAILY #30 tab 10/07/14 11/20/18 Unknown Rx Amoxicillin/K Clav Tab [Augmentin 1 tab PO Q12HR 6 Days #12 tab 11/21/18 Unknown Rx 875 mg] DOXYCYCLINE Hyclate [Vibramycin 100 mg PO Q12HR 6 Days #12 capsule 11/21/18 Unknown Rx CAP] Ciprofloxacin HCl [Ciprofloxacin 500 mg PO Q12HR 10 Days #20 tab 03/28/19 Unknown Rx TAB] Promethazine [Phenergan] 25 mg PO Q8HR PRN #20 tab 03/28/19 Unknown Rx ED Physical Exam - General Limitations: No Limitations General appearance: alert, in no apparent distress, obese (morbidly obese) - Respiratory Respiratory exam: Present: normal lung sounds bilaterally. Absent: respiratory distress - Cardiovascular Cardiovascular Exam: Present: regular rate, normal rhythm. Absent: systolic murmur, diastolic murmur, rubs, gallop - GI/Abdominal GI/Abdominal exam: Present: soft, tenderness (left lower quadrant tenderness), normal bowel sounds, other (obese abdomen). Absent: distended, guarding, rebound, rigid - Back Exam Back exam: Present: full ROM, CVA tenderness (L). Absent: CVA tenderness (R), muscle spasm, rash noted - Neurological Exam Neurological exam: Present: alert, oriented X3 - Psychiatric Psychiatric exam: Present: normal affect, normal mood - Skin Skin exam: Present: warm, dry, intact, normal color. Absent: rash ED Course Vital Signs 03/28/19 03/28/19 03/28/19 11:59 15:41 16:08 Temperature 98.4 F 98.6 F Pulse Rate 98 H 72 73 Respiratory 18 17 Rate Blood Pressure 175/102 176/107 Blood Pressure 176/107 [Right] O2 Sat by Pulse 100 99 Oximetry ED Medical Decision Making - Lab Data Result diagrams: 03/28/19 13:20 03/28/19 13:20 Lab Results 03/28/19 03/28/19 03/28/19 Range/Units 12:10 13:20 13:20 WBC 12.9 H (4.5-11.0) K/mm3 RBC 4.94 (3.65-5.03) M/mm3 Hgb 13.3 (10.1-14.3) gm/dl Hct 39.5 (30.3-42.9) % MCV 80 (79-97) fl MCH 27 L (28-32) pg MCHC 34 (30-34) % RDW 13.6 (13.2-15.2) % Plt Count 270 (140-440) K/mm3 Lymph % (Auto) 21.3 (13.4-35.0) % [facility] % (Auto) 5.3 (0.0-7.3) % Eos % (Auto) 1.1 (0.0-4.3) % Baso % (Auto) 0.7 (0.0-1.8) % Lymph # 2.8 (1.2-5.4) K/mm3 [facility] [facility] # 0.7 (0.0-0.8) K/mm3 Eos # 0.1 (0.0-0.4) K/mm3 Baso # 0.1 (0.0-0.1) K/mm3 Seg Neutrophils % 71.6 H (40.0-70.0) % Seg Neutrophils # 9.3 H (1.8-7.7) K/mm3 Sodium 141 (137-145) mmol/L Potassium 3.6 (3.6-5.0) mmol/L Chloride 102.6 (98-107) mmol/L Carbon Dioxide 27 (22-30) mmol/L Anion Gap 15 mmol/L BUN 11 (7-17) mg/dL Creatinine 0.8 (0.7-1.2) mg/dL Estimated GFR > 60 ml/min BUN/Creatinine Ratio 14 % Glucose 95 (65-100) mg/dL Calcium 8.9 (8.4-10.2) mg/dL Total Bilirubin 0.30 (0.1-1.2) mg/dL AST 12 (5-40) units/L ALT 16 (7-56) units/L Alkaline Phosphatase 80 (35-129) units/L Total Protein 7.2 (6.3-8.2) g/dL Albumin 3.8 L (3.9-5) g/dL Albumin/Globulin Ratio 1.1 % Lipase 17 (13-60) units/L Urine Color Yellow (Yellow) Urine Turbidity Cloudy (Clear) Urine pH 5.0 (5.0-7.0) Ur Specific [place] 1.013 (1.003-1.030) Urine Protein 100 mg/dl (Negative) mg/dL Urine Glucose (UA) Neg (Negative) mg/dL Urine Ketones Neg (Negative) mg/dL Urine Blood Neg (Negative) Urine Nitrite Neg (Negative) Urine Bilirubin Neg (Negative) Urine Urobilinogen < 2.0 (<2.0) mg/dL Ur Leukocyte Esterase Lg (Negative) Urine WBC (Auto) 114.0 H (0.0-6.0) /HPF Urine RBC (Auto) 7.0 (0.0-6.0) /HPF U Epithel Cells (Auto) 25.0 H (0-13.0) /HPF Urine Bacteria (Auto) 1+ (Negative) /HPF Urine Mucus Few /HPF Urine Yeast (Budding) 1+ /HPF Urine HCG, Qual Negative (Negative) - Radiology Data Radiology results: report reviewed PROCEDURE: CT ABDOMEN PELVIS W CON TECHNIQUE: Computerized axial tomography of the abdomen and pelvis was performed after the IV injection of iodinated nonionic contrast. CT DOSE LENGTH PRODUCT: 3212.9 mGycm HISTORY: LLQ tenderness COMPARISONS: None . FINDINGS: No acute lung base finding. No acute fracture. Surgically absent gallbladder. Normal-appearing liver, adrenals, pancreas, and spleen. Intact normal caliber abdominal aorta and IVC. There is nonspecific bilateral slight hydronephrosis without evidence of renal or ureteral calculus. Nonspecific mural thickening and slight hyperenhancement is noted in both ureters with adjacent fat stranding and slight free fluid. These findings are suspicious for bilateral pyelonephritis. Renal excretion is bilaterally symmetric. Free fluid extends into the paracolic gutters bilaterally as well as the pelvis cul-de-sac region and otherwise. Intact abdominal wall without hernia. No retroperitoneal adenopathy. No mesenteric mass. Normal- appearing stomach and duodenum. No small bowel distention in the abdomen and pelvis. In the pelvis, normal-appearing urinary bladder without mass or wall thickening. Normal-appearing uterus and adnexa. No definite rectal or sigmoid colon abnormality. No free air or colonic distention. Normal-appearing cecum and terminal ileum. Normal appendix. IMPRESSION: Findings suspicious for bilateral pyelonephritis - Medical Decision Making Patient was examined by me. Patient is in no acute distress. Blood pressure elevated. PMH HTN and IBS. IV site obtained. Given clonidine, toradol, and zofran IV. Obtained labs and CT of abdomen and pelvis. CT dictated by radiologist. Findings suspicious for bilateral pyelonephritis. Given rocephin 1 g IV while in ER. Patient informed of results. Start cipro and zofran for pyelonephritis. Patient states she was sent up real blood pressure medication prior to arrival. 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 Plan discussed with patient to discharge home and treat outpatient. She agrees with ER plan. Patient discharged home in stable condition. Follow up with PCP in 2-3 days. Critical care attestation.: If time is entered above; I have spent that time in minutes in the direct care of this critically ill patient, excluding procedure time. ED Disposition Clinical Impression: Left flank pain, Nausea alone, Acute pyelonephritis, Asymptomatic hypertension Disposition: TO HOME OR SELFCARE Is pt being admited?: No Does the pt Need Aspirin: No Condition: Stable Instructions: Acute Pyelonephritis (ED), Abdominal Pain (ED), Hypertension (ED) Additional Instructions: Increase fluid intake to 1L to 2L daily. Complete full course of antibiotics as prescribed. Avoid drinking alcohol while taking antibiotics and for 24 hours after completion. Follow up with primary care provider in 2-3 days. Prescriptions: Ciprofloxacin HCl [Ciprofloxacin TAB] 500 mg PO Q12HR 10 Days #20 tab Promethazine [Phenergan] 25 mg PO Q8HR PRN #20 tab PRN Reason: Nausea Referrals: JANKI TANNER MD [Primary Care Provider] - 3-5 Days [facility] [Outside] - 3-5 Days [facility] [Outside] - 3-5 Days [facility] [Provider Group] - 3-5 Days Time of Disposition: 15:52
[2019-03-28 13:38] LABS: Basophils # (Auto) 0.1 K/mm3 (0.0-0.1); Basophils % (Auto) 0.7 % (0.0-1.8); Eosinophils # (Auto) 0.1 K/mm3 (0.0-0.4); Eosinophils % (Auto) 1.1 % (0.0-4.3); Hematocrit 39.5 % (30.3-42.9); Hemoglobin 13.3 gm/dl (10.1-14.3); Lymphocytes # (Auto) 2.8 K/mm3 (1.2-5.4); Lymphocytes % (Auto) 21.3 % (13.4-35.0); Mean Corpuscular HGB Conc 34 % (30-34); Mean Corpuscular Volume 80 fl (79-97); Monocytes # (Auto) 0.7 K/mm3 (0.0-0.8); Monocytes % (Auto) 5.3 % (0.0-7.3); Platelet Count 270 K/mm3 (140-440); Red Blood Count 4.94 M/mm3 (3.65-5.03); Red Cell Distribution Width 13.6 % (13.2-15.2)
[2019-03-28 14:15] LABS: Alanine Aminotransferase 16 units/L (7-56); Albumin 3.8 g/dL (3.9-5); BUN/Creatinine Ratio 14; Blood Urea Nitrogen 11 mg/dL (7-17); Calcium 8.9 mg/dL (8.4-10.2); Hemolysis Index 7
--- NOTE | 2019-03-28 15:20 | Cat Scan Report ---
PROCEDURE: CT ABDOMEN PELVIS W CON TECHNIQUE: Computerized axial tomography of the abdomen and pelvis was performed after the IV inject ion of iodinated nonionic contrast. CT DOSE LENGTH PRODUCT: 3212.9 mGycm HISTORY: LLQ tenderness COMPARISONS: None . FINDINGS: No acute lung base finding. No acute fracture. Surgically absent gallbladder. Normal-appearing liver, adrenals, pancreas, and spleen. Intact normal caliber abdominal aorta and IVC. There is nonspecific bilateral slight hydronephrosis without evidence of renal or ureteral calculus. Nonspecific mural thickening and slight hyperenhancement is noted in both ureters with adjacent fat s tranding and slight free fluid. These findings are suspicious for bilateral pyelonephritis. Renal exc retion is bilaterally symmetric. Free fluid extends into the paracolic gutters bilaterally as well as the pelvis cul-de-sac region and otherwise. Intact abdominal wall without hernia. No retroperitoneal adenopathy. No mesenteric mass. Normal-appea ring stomach and duodenum. No small bowel distention in the abdomen and pelvis. In the pelvis, normal-appearing urinary bladder without mass or wall thickening. Normal-appearing matt giana and adnexa. No definite rectal or sigmoid colon abnormality. No free air or colonic distention. N ormal-appearing cecum and terminal ileum. Normal appendix. IMPRESSION: Findings suspicious for bilateral pyelonephritis This document is electronically signed by Reinaldo Oneill MD., March 28 2019 03:18:48 PM ET
[2019-03-28] MEDS ORDERED: ROCEPHIN/NS 1 GM/50 ML 1 GM/50 ML BAG IV ONE (15:29)
[2019-03-28] MEDS ORDERED: CATAPRES PO ONE (15:53)
[2019-03-28 16:33] VITALS: BP 178/108
== END 2019-03-28 16:33 | disposition home or self-care (01) ==
LOC: ED 11:40
DX: N12 Tubulo-interstitial nephritis, not specified as acute or chronic (principal); I10 Essential (primary) hypertension; K58.9 Irritable bowel syndrome, unspecified; R11.0 Nausea; E66.01 Morbid (severe) obesity due to excess calories; Z68.42 Body mass index [BMI] 45.0-49.9, adult; Z88.8 Allergy status to other drugs, medicaments and biological substances; Z90.49 Acquired absence of other specified parts of digestive tract
CPT/HCPCS: 36415; 74177; 80053; 81001; 81025; 83690; 85025; 96365; 96375; 99284; J0696; J1885; J2405; Q9967

== ENCOUNTER 2022-05-07 09:51 | Outpatient (CLI) | payer MEDICAID ==
--- NOTE | 2022-05-07 13:49 | Cat Scan Report ---
CT PELVIS WITHOUT CONTRAST INDICATION / CLINICAL INFORMATION: Rr10.2 chronic pelvic pain, possible adhesions, hernia . TECHNIQUE: Axial CT images were obtained through the pelvis without contrast. All CT scans at this [facility] are performed using CT dose reduction for ALARA by means of automated exposure control. COMPARISON: 03/28/2019 FINDINGS: BOWEL: The colon is without significant abnormality. The small bowel is without significant abnormali ty, more specifically there is no evidence of small bowel dilation of the visualized small bowel.. APPENDIX: No significant abnormality. PERITONEUM: No free fluid. No free air. No fluid collection. LYMPH NODES: No significant adenopathy. ARTERIES: No significant abnormality. VEINS: No significant abnormality. URINARY BLADDER: Incompletely distended but otherwise without significant abnormality REPRODUCTIVE ORGANS: No significant abnormality. ADDITIONAL FINDINGS: None. SKELETAL SYSTEM: No significant abnormality. IMPRESSION: 1. No CT findings to explain symptomatology. Signer Name: Hima Torres DO Signed: 05/07/2022 1:44 PM Workstation Name: [id number]
== END 2022-05-07 09:52 | disposition home or self-care (01) ==
LOC: CT 09:51
PROVIDERS: ATTEND Obstetrics & Gynecology
DX: R10.2 Pelvic and perineal pain (principal)
CPT/HCPCS: 72192

== ENCOUNTER 2022-06-13 10:00 | Outpatient (CLI) | payer MEDICAID ==
--- NOTE | 2022-06-13 12:16 | Cat Scan Report ---
CT ABDOMEN WITHOUT CONTRAST HISTORY: R10.9 UNSPECIFIED ABDOMINAL PAIN. COMPARISON: 03/28/2019 TECHNIQUE: CT images of the abdomen were obtained following administration of intravenous contrast. S agittal and coronal reformatted images. All CT scans at this location are performed using CT dose red uction for ALARA by means of automated exposure control. FINDINGS: Abdomen: The gallbladder has been surgically removed. No biliary dilatation. The unenhanced CT appea anshu of the liver, pancreas, spleen, kidneys, adrenal glands and visualized bowel loops are within n ormal limits. The appendix is not included. The aorta and vascular structures are unremarkable. No ev idence for adenopathy, ascites, fluid collection or free air. Lungs/bones: No significant abnormality. IMPRESSION: Unremarkable examination. Signer Name: García Sow Jr, MD Signed: 06/13/2022 12:12 PM Workstation Name: [id number]
== END 2022-06-13 10:01 | disposition home or self-care (01) ==
LOC: CT 10:00
PROVIDERS: ATTEND Surgery
DX: R10.9 Unspecified abdominal pain (principal)
CPT/HCPCS: 74150

== ENCOUNTER 2022-06-19 06:24 | Day surgery (SDC) | payer MEDICAID ==
--- NOTE | 2022-06-15 10:16 | Anesthesia Consultation ---
Anesthesia Consult and Med Hx Date of service: 06/19/22 - Airway Anesthetic Teeth Evaluation: Good ROM Head & Neck: Adequate Mental/Hyoid Distance: Adequate Mallampati Class: Class II Intubation Access Assessment: Good - Pre-Operative Health Status ASA Pre-Surgery Classification: ASA3 Proposed Anesthetic Plan: General Nerve Block: TAP - Pulmonary Hx Smoking: No Hx Asthma: No Hx Respiratory Symptoms: No (+2FS) COPD: No Hx Pneumonia: No Hx Sleep Apnea: No (HOMERO PRE SCREEN HIGH RISK) - Cardiovascular System Hx Hypertension: Yes (x 15 yrs) Hx Coronary Artery Disease: No Hx Heart Attack/AMI: No Hx Angina: No Hx Percutaneous Transluminal Coronary Angioplasty (PTCA): No Hx Pacemaker: No Hx Internal Defibrillator: No Hx Valvular Heart Disease: No Hx Heart Murmur: No Hx Peripheral Vascular Disease: No - Central Nervous System Hx Psychiatric Problems: No - Gastrointestinal Hx Ulcer: Yes Hx Gastroesophageal Reflux Disease: Yes (Occasional-no rx) - Endocrine Hx Renal Disease: No Hx End Stage Renal Disease: No Hx Cirrhosis: No - Hematic Hx Anemia: No Hx Sickle Cell Disease: No - Other Systems Hx Alcohol Use: No Hx Substance Use: No Hx Cancer: No Hx Obesity: Yes (BMI 49)
[~2022-06-19 06:24] MED LIST: ACETAMINOPHEN 500 MG TAB PO SCH; CELECOXIB 200 MG CAP PO NR; LACTATED RINGERS 1,000 ML IV SCH; MAGNESIUM OXIDE 400 MG TAB PO SCH; MIDAZOLAM 2 MG/2 ML INJ IV NR; fentaNYL 100 MCG/2 ML INJ IV SCH
[2022-06-19] MEDS ORDERED: dexAMETHasone 4 MG/ML VIAL ONE (07:28)
[2022-06-19] MEDS ORDERED: LIDOCAINE (1%) 10 MG/1 ML VIAL 20 ML MDV ONE ×2 (07:28→07:40)
[2022-06-19] MEDS ORDERED: BUPIVACAINE-EPINEPHRINE/PF 0.25%-1:200,000 (30 ML) VIAL INFILTRATI ONE (07:29)
--- NOTE | 2022-06-19 07:33 | Anesthesia Day of Surgery ---
Anesthesia Day of Surgery - Day of Surgery Patient Examined: Yes Patient H&P Reviewed: Yes Patient is NPO: Yes
[2022-06-19] MEDS ORDERED: ONDANSETRON 4 MG/2 ML INJ IV PRN (07:35)
[2022-06-19] MEDS ORDERED: HYDROmorphone 0.5 MG/0.5 ML INJ IV PRN (07:35)
[2022-06-19] MEDS ORDERED: BUPIVACAINE/PF (0.5%) 5 MG/1 ML 30 ML VIAL INFILTRATI ONE (07:40)
[2022-06-19] MEDS ORDERED: fentaNYL 100 MCG/2 ML INJ ONE (07:41)
[2022-06-19] MEDS ORDERED: propofoL 200 MG/20 ML VIAL IV ONE ×2 (07:41)
[2022-06-19] MEDS ORDERED: dexAMETHasone 20 MG/5 ML VIAL ONE (07:41)
[2022-06-19] MEDS ORDERED: LIDOCAINE PF 100 MG/5 ML (CARDIAC SYRINGE) IV ONE (07:42)
[2022-06-19] MEDS ORDERED: SUCCINYLCHOLINE CHLORIDE 200 MG/10 ML INJ MDV ONE (07:42)
[2022-06-19] MEDS ORDERED: ROCURONIUM 50 MG/5 ML INJ IV ONE (07:42)
[2022-06-19 07:51] LABS: Hematocrit 37.8 % (30.3-42.9); Hemoglobin 12.9 gm/dl (10.1-14.3); Mean Corpuscular HGB Conc 34 % (30-34); Mean Corpuscular Volume 84 fl (79-97); Platelet Count 262 K/mm3 (140-440); Red Blood Count 4.51 M/mm3 (3.65-5.03); Red Cell Distribution Width 14.1 % (13.2-15.2)
[2022-06-19] MEDS ORDERED: HYDROcodone/ACETAMINOPHEN 5-325 MG TAB PO PRN (08:00)
[2022-06-19] MEDS ORDERED: ceFAZolin/Water 2 GM/20 ML 2 GM/20 ML SYRINGE IV ONE (08:01)
[2022-06-19 08:24] LABS: BUN/Creatinine Ratio 19; Blood Urea Nitrogen 15 mg/dL (7-17); Hemolysis Index 8
[2022-06-19] MEDS ORDERED: SODIUM CHLORIDE 0.9% IRR 1,500 ML BOTTLE IR ONE (09:00)
[2022-06-19] MEDS ORDERED: GLYCOPYRROLATE 0.4 MG/2 ML INJ ONE (10:25)
[2022-06-19] MEDS ORDERED: NEOSTIGMINE 10MG/10 ML INJ MDV ONE (10:25)
[2022-06-19] MEDS ORDERED: SUGAMMADEX SODIUM 200 MG/2 ML VIAL IV ONE (10:37)
--- NOTE | 2022-06-19 10:49 | Short Stay Summary ---
Short Stay Documentation Date of service: 06/19/22 - History Principal diagnosis: ventral hernia, abdominal pain H&P: obtained from office - Allergies and Medications Current Medications: Allergies meperidine HCl [From Demerol] Allergy (Verified 06/29/13 10:07) Hives Home Medications Medication Instructions Recorded Confirmed Last Taken Type Atenolol/Chlorthalidone [Tenoretic 1 tab PO QDAY 06/14/22 06/19/22 06/18/22 09:00 History 50-25] Linaclotide [Linzess] 145 mcg PO QDAY 06/14/22 06/19/22 06/18/22 09:00 History NIFEdipine [Nifedipine ER] 60 mg PO DAILY 06/14/22 06/19/22 06/19/22 05:00 History Active Medications Acetaminophen (Acetaminophen 500 Mg Tab) 1,000 mg PO ONCE@0600 [facility] Stop: 06/19/22 21:00 Last Admin: 06/19/22 07:25 Dose: 1,000 mg Hydrocodone Bitart/Acetaminophen (Hydrocodone/Acetaminophen 5-325 Mg Tab) 2 each PO ONCE PRN PRN Reason: Pain, Moderate (4-6) Stop: 06/19/22 12:00 Celecoxib (Celecoxib 200 Mg Cap) 400 mg PO PREOP NR Stop: 06/19/22 21:00 Last Admin: 06/19/22 07:25 Dose: 400 mg Fentanyl (Fentanyl 100 Mcg/2 Ml Inj) 100 mcg IV ONCE@0600 [facility] Stop: 06/19/22 21:00 Last Admin: 06/19/22 07:48 Dose: 100 mcg Hydromorphone HCl (Hydromorphone 0.5 Mg/0.5 Ml Inj) 0.5 mg IV Q10MIN PRN PRN Reason: Pain , Severe (7-10) Stop: 06/19/22 20:00 Lactated Ringer's (Lactated Ringers) 1,000 mls @ 125 mls/hr IV DIRECT BOYD Last Admin: 06/19/22 07:35 Dose: 125 mls/hr Cefazolin Sodium 2 gm/ Sodium (Chloride) 100 mls @ 100 mls/30 min IV PREOP NR; Protocol Stop: 06/19/22 23:59 Magnesium Oxide (Magnesium Oxide 400 Mg Tab) 400 mg PO ONCE@0600 [facility] Stop: 06/19/22 21:00 Last Admin: 06/19/22 07:25 Dose: 400 mg Methocarbamol (Methocarbamol 750 Mg Tab) 1,500 mg PO ONCE@0600 [facility] Stop: 06/19/22 21:00 Last Admin: 06/19/22 07:25 Dose: 1,500 mg Midazolam HCl (Midazolam 2 Mg/2 Ml Inj) 2 mg IV PREOP NR Stop: 06/19/22 23:59 Last Admin: 06/19/22 07:48 Dose: 2 mg Ondansetron HCl (Ondansetron 4 Mg/2 Ml Inj) 4 mg IV ONCE PRN PRN Reason: Nausea And Vomiting Stop: 06/19/22 12:00 - Brief post op/procedure progress note Date of procedure: 06/19/22 Pre-op diagnosis: abdominal pain, ventral hernia Post-op diagnosis: same Procedure: robotic assisted ventral hernia repair with mesh, ESTEFANY, dx lap Anesthesia: GETA, other (Block TAP) Findings: 1. <1 cm epigastric midline hernia containing moderate preperitoneal fat - repaired with 8 cm bard polypropylene mesh in preperitoneal space 2. B/L cystic ovaries 3. Adhesions from omentum to upper abd wall and liver 4. No other source of patient's abdominal pain identified. Surgeon: VIRI BOWERS Bottle Blowing Machine Tender: ROSE MARY AUSTIN Estimated blood loss: minimal Pathology: none Condition: stable - Hospital course Hospital course: Patient observed in PACU and discharged home in stable condition when criteria met - Disposition Condition at discharge: Good Disposition: 01 HOME / SELF CARE / HOMELESS Short Stay Discharge Plan Activity: other (No heavy lifting greater than 15 pounds for the next 6 weeks) Diet: low fat Wound: open to air, per your surgeon's advice Additional Instructions: Please see printed discharge instructions Follow up with: JESSICA OBRIEN NP [Primary Care Provider] - 7 Days VIRI BOWERS DO [Staff Physician] - 14 Days Prescriptions: HYDROcodone/APAP 5-325 [[employer] 5-325 mg TAB] 1 each PO Q6H PRN #20 tablet PRN Reason: Pain , Severe (7-10)
[2022-06-19 12:56] VITALS: BP 120/67
--- NOTE | 2022-06-19 13:23 | Post Anesthesia Evaluation ---
- Post Anesthesia Evaluation Patient Participated: Yes Airway Patent: Yes Stable Respiratory Function: Yes Nausea/Vomiting: No Temp > 96.8F: Yes Pain Manageable: Yes Adequeate Hydration: Yes Anesthesia Complications: No
--- NOTE | 2022-06-20 11:56 | Operative Report ---
Operative Report Operative Report: Date of procedure: 06/19/22 Pre-op diagnosis: abdominal pain, ventral hernia Post-op diagnosis: same Procedure: robotic assisted ventral hernia repair with mesh, ESTEFANY, dx lap Anesthesia: GETA, other (Block TAP) Findings: 1. <1 cm epigastric midline hernia containing moderate preperitoneal fat - repaired with 8 cm bard polypropylene mesh in preperitoneal space 2. B/L cystic ovaries 3. Adhesions from omentum to upper abd wall and liver 4. No other source of patient's abdominal pain identified. Surgeon: VIRI BOWERS Limousine Driver: ROSE MARY AUSTIN Estimated blood loss: minimal Pathology: none Condition: stable - Hospital course Hospital course: Patient observed in PACU and discharged home in stable condition when criteria met - Disposition Condition at discharge: Good Disposition: 01 HOME / SELF CARE / HOMELESS HPI and indication: 36 yo F with hx of chronic pelvic and epigastric abdominal pain who was referred to the surgery clinic from her [facility] for evaluation of possible hernia. Patient found to to have a fat containing midline epigastric hernia on Ct scan but no other etiology for lower abdominal pain. It was r ecommended she undergo diagnostic lap with possible lysis of adhesions and robotic assisted ventral hernia repair with mesh. Consent obtained in office. Procedure in detail: Patient identified in the preoperative area. She was taken to the operating room and placed on the OR table in supine position. After anesthesia was induced a yap catheter was placed by circulating nurse in sterile fashion. The abdomen was prepped and draped in sterile fashion and time out performed. The patient had received a TAP block by anesthesia in preop. A jose luis incision was made in the LUQ at [place] through which a veress needle was inserted. The veress needed positioning was confirmed using the saline drop test and the abdomen insufflated to 15 mm HG without incident. Another incision was made inferior to the veress in the LUQ and a 5 mm optiview trocar inserted. The abdomen was inspected and there was no injury to the abdominal structures. The veress was identified and removed. An 8 mm robotic LLQ trocar was placed under direct visualization and another 8 mm robotic trocar in the left lateral abdomen. The 5 mm RUQ trocar was removed and replaced with an 8 mm robotic trocar. The robot was then docked with forced bipolar in arm number 2, camera in arm number 3, and monopolar scissor in arm number 4. The surgeon was transferred to the console. Upon inspecting the abdomen a fat containing midline epigastric ventral hernia was identified. There were also adhesions from the omentum to the falciform ligament and liver. The adhesions were dissected using the monopolar scissors. I then turned my attention to the hernia. The peritoneum was scored to the left of the hernia and an avascular preperitoneal plane developed on either side of the hernia. The hernia contained a moderate amount of preperitoneal fat which was gently reduced along with the sac. The hernia defect measured less than 1 cm. The preperitoneal dissection was carried to the contralateral side to accomodate mesh placement. An 8 cm bard polypropylene mesh was cut to size and placed into the abdomen along with suture material by the assistant women's rowing coach surgeon. The fascial defect was closed using 0-vloc running stitch. The mesh was positioned in the preperitoneal space and centered. The mesh was sutured to the post fascia using interrupted 2-0 vicryl stitches in 4 quadrants. The mesh was seen to lay flat with adequate coverage of the hernia. The abdominal pressure was turned down to 8 mmHG and the peritoneum was reapproximated using 3-0 vloc running stitch. A small defect in the peritoneum was approximated using 3-0 vloc running stitch. All of the mesh was covered by peritoneum. The robot was then docked and the surgeon scrubbed back in. The remainder of the case was performed laparoscopically. All quadrants were examined. The small bowel and colon/appendix were unremarkable. There are bilateral cystic ovaries. No free fluid. No other abdominal wall adhesions. The sharps were removed from the abdomen under direct visualization. The ports were then removed and the abdomen desufflated. The skin incisions were closed using 4-0 monocryl subcuticular stitches and skin glue. At the end of the case all sponge, instrument, sharp counts were correct x2. The patient was awoken from anesthesia, yap removed, and taken to PACU in stable condition.
== END 2022-06-19 12:23 | disposition home or self-care (01) ==
LOC: OR 06:24
PROVIDERS: ATTEND Surgery
DX: K43.9 Ventral hernia without obstruction or gangrene (principal); R10.9 Unspecified abdominal pain; K66.0 Peritoneal adhesions (postprocedural) (postinfection); D72.829 Elevated white blood cell count, unspecified; E78.00 Pure hypercholesterolemia, unspecified; I10 Essential (primary) hypertension; K21.9 Gastro-esophageal reflux disease without esophagitis; E66.9 Obesity, unspecified; M19.90 Unspecified osteoarthritis, unspecified site; Z88.8 Allergy status to other drugs, medicaments and biological substances; Z79.899 Other long term (current) drug therapy; Z20.822 Contact with and (suspected) exposure to COVID-19; Z90.49 Acquired absence of other specified parts of digestive tract; Z98.51 Tubal ligation status; Z98.890 Other specified postprocedural states; Z87.440 Personal history of urinary (tract) infections; Z82.5 Family history of asthma and other chronic lower respiratory diseases; Z80.8 Family history of malignant neoplasm of other organs or systems; Z68.42 Body mass index [BMI] 45.0-49.9, adult
CPT/HCPCS: 36415; 49652; 80048; 81025; 85027; C1781; J0330; J0690; J1100; J1170; J1815; J2001; J2250; J2405; J2704; J2710; J3010; J3490; J7120; S2900; U0003